=== PATIENT | male | born 1945 | race Caucasian/White ===

== ENCOUNTER 2022-12-11 13:31 | Observation (INO) | payer OTHER, MEDICARE, SELFPAY ==
[2022-12-11] VITALS (8 sets, daily range): BP systolic 114–149; BP diastolic 62–79; PULSE 66–88; RESP 12–20; TEMP 36.3–37.6; O2SAT 94–98; BMI 27.4; BMI 27.1
--- NOTE | ~2022-12-11 | CT_ITS ---
EXAMINATION: CT HEAD WITHOUT CONTRAST CLINICAL INFORMATION: Altered mental status COMPARISON: None available. TECHNIQUE: Contiguous axial imaging was performed from the skull base to vertex without intravenous administration of contrast. This CT examination was performed using dose optimization techniques as appropriate, variously including the following: *Automated exposure control *Adjustment of mA and/or kV according to patient size (this includes techniques or standardized protocols for targeted exams where dose is matched to indication/reason for exam; i.e. extremities or head) *Use of iterative reconstruction technique DLP: 661 mGy-cm FINDINGS: There is no evidence of an extra-axial collection. There is no evidence of intra-axial or extra-axial hemorrhage. The ventricles and extra-axial CSF spaces are appropriate. Oliver-white matter differentiation is normal. No mass, mass effect or infarct. Review at bone windows is normal. CT/CT head/brain wo IV con IMPRESSION: Unremarkable exam.
--- NOTE | 2022-12-11 13:39 | ED.AMS ---
HPI - Altered Mental Status General Chief Complaint: Neuro Symptoms/Deficit Stated Complaint: stroke alert, AMS,Weakness Time Seen by Provider: 12/11/22 13:39 Source: EMS Mode of arrival: EMS Limitations: altered mental status History of Present Illness HPI narrative: patient moving wood in the heat, dressed in jeans and full shirt became very weak, diaphoretic and then had an episode of LOC with the , EMS states waxing and waning confusion. MD complaint: altered mental status, confusion and decreased responsiveness Onset (ago): minute(s) Timing confirmed by: spouse and other (EMS) Severity: severe Related Data Allergies Allergy/AdvReac Type Severity Reaction Status Date / Time No Known Allergies Allergy Verified 12/11/22 13:39 Review of Systems Review of Systems: Yes Unobtainable due to mental status [facility] Social History Social History Alcohol intake: never Smoked in Last 30 Days: No Use of substances other than those prescribed or required for medical reasons: No Advance Directives: No Advance Directives Information Provided: Yes Physical Exam ED Vital Signs: Vital Signs - 24 hr 12/11/22 13:57 12/11/22 16:17 Temperature 97.8 F 98.1 F Pulse Rate 66 79 Respiratory Rate 16 12 Blood Pressure 123/66 122/65 Pulse Oximetry 97 98 Oxygen Delivery Method Room Air Room Air BMI result Body Mass Index 27.4 Const Other: diaphoretic altered, confused looking ill Nutritional Appearance: average body habitus Orientation/consciousness: oriented to person Limitations: altered mental status HENMT Head: Yes normal to inspection Ears: external ears normal General nose exam: Normal external nose present Mouth: Normal oral and palatal mucosa present and oropharynx normal Throat: Yes posterior oropharynx normal Eyes General: appearance normal, both eyes and all related structures Neck Neck: Yes normal visual inspection Chest Chest palpation & inspection: normal inspection of the chest Resp Auscultation: clear to auscultation bilaterally Cardio Jugular venous distension: no JVD Rate: regular rate Rhythm: regular rhythm Heart sounds: S1 normal heart sound present and S2 normal heart sound present GI Inspection: Yes normal to inspection Palpation (GI): Soft to palpation, nontender and No hepatosplenomegaly present Auscultation: normal bowel sounds General: Yes no CVA tenderness Back/Spine/Pelvis Back: no CVA tenderness Skin General skin exam: no rashes or lesions noted Neuro General: oriented to person Cranial nerves: Yes CN's II-XII intact bilaterally Motor exam (neuro): 5/5 motor strength present throughout Extrem General: Yes normal to inspection Psych Other: confused Course Reevaluation(s) Reevaluation #1: patient now improved but with LOC and severe confusion will admit for likely heat stroke Time: 16:24 Reevaluation #2: I spent 40 minutes of critical care, with interventions, assessments, speaking to patient, consultants, and family. Time: 16:30 Medications Administered Discontinued Medications Generic Name Dose Route Start Last Admin Trade Name Freq PRN Reason Stop Dose Admin Sodium Chloride 1,000 mls @ 999 mls/hr 12/11/22 13:45 12/11/22 15:51 Ns IVCONT 12/11/22 15:45 999 mls/hr .Q1H1M CARLOS Administration Medical Decision Making Differential Diagnosis Differential Diagnoses: The differential diagnosis associated with the presentation includes (stroke, cerebral bleed, myocardial infarction, hypoglycemia, hyponatremia, heat stroke) Admission/Observation Consideration of admission/observation: Escalation of care including admission/observation considered (upon arrival patient considered for admission) Consult Healthcare Provider Management of the patient was discussed with: Hospitalist Lab Data 12/11/22 14:05 12/11/22 14:05 Labs: Lab Results 12/11/22 12/11/22 12/11/22 Range/Units 13:57 14:05 14:05 WBC 7.9 (4.8-10.8) X10*3/uL RBC 4.55 L (4.60-5.80) X10*6/uL Hgb 14.5 (14.0-18.0) g/dl Hct 42.0 (42.0-52.0) % MCV 92.3 (80.0-98.0) fL MCH 31.9 (27.0-33.0) pg MCHC 34.5 (31.0-36.0) g/dl RDW 13.0 (11.0-16.0) % Plt Count 197 (160-400) X10*3/uL MPV 9.4 (9.4-12.4) fL Immature Gran % (Auto) 0.5 H (0.0-0.4) % Neut % (Auto) 76.0 H (45-73) % Lymph % (Auto) 12.1 L (20-40) % [place] % (Auto) 11.0 (2-11) % Eos % (Auto) 0.1 (0-4) % Baso % (Auto) 0.3 (0-2) % Lymph # (Auto) 1.0 L (1.2-4.9) X10*3/uL [place] # (Auto) 0.9 (0.1-1.2) X10*3/uL Eos # (Auto) 0.0 (0.0-0.4) X10*3/uL Baso # (Auto) 0.0 (0.0-0.2) X10*3/uL Abs Immat Gran (auto) 0.04 H (0.00-0.03) X10*3/uL Absolute Neuts (auto) 6.0 (2.0-8.3) x10*3/uL Absolute Nucleated RBC 0.000 (0.0-0.012) X10*3/uL Nucleated RBC % (auto) 0.0 (0.0-0.2) /100WBC Sodium 139 (135-145) mmol/L Potassium 4.6 (3.3-5.1) mmol/L Chloride 105 (96-108) mmol/L Carbon Dioxide 25 (22-29) mmol/L Anion Gap 14 (12-20) BUN 11 (9-16) mg/dL Creatinine 1.29 (0.5-1.4) mg/dL Estim Creat Clear Calc 52.6 Estimated GFR 54 POC Glucose 100 (60-115) mg/dL Random Glucose 114 (60-115) mg/dL Calcium 9.4 (8.4-10.2) mg/dL Total Creatine Kinase 61 (38-174) U/L Troponin I High Sens (<3.5-35.0) ng/L 12/11/22 Range/Units 14:05 WBC (4.8-10.8) X10*3/uL RBC (4.60-5.80) X10*6/uL Hgb (14.0-18.0) g/dl Hct (42.0-52.0) % MCV (80.0-98.0) fL MCH (27.0-33.0) pg MCHC (31.0-36.0) g/dl RDW (11.0-16.0) % Plt Count (160-400) X10*3/uL MPV (9.4-12.4) fL Immature Gran % (Auto) (0.0-0.4) % Neut % (Auto) (45-73) % Lymph % (Auto) (20-40) % [place] % (Auto) (2-11) % Eos % (Auto) (0-4) % Baso % (Auto) (0-2) % Lymph # (Auto) (1.2-4.9) X10*3/uL [place] # (Auto) (0.1-1.2) X10*3/uL Eos # (Auto) (0.0-0.4) X10*3/uL Baso # (Auto) (0.0-0.2) X10*3/uL Abs Immat Gran (auto) (0.00-0.03) X10*3/uL Absolute Neuts (auto) (2.0-8.3) x10*3/uL Absolute Nucleated RBC (0.0-0.012) X10*3/uL Nucleated RBC % (auto) (0.0-0.2) /100WBC Sodium (135-145) mmol/L Potassium (3.3-5.1) mmol/L Chloride (96-108) mmol/L Carbon Dioxide (22-29) mmol/L Anion Gap (12-20) BUN (9-16) mg/dL Creatinine (0.5-1.4) mg/dL Estim Creat Clear Calc Estimated GFR POC Glucose (60-115) mg/dL Random Glucose (60-115) mg/dL Calcium (8.4-10.2) mg/dL Total Creatine Kinase (38-174) U/L Troponin I High Sens < 2.7 (<3.5-35.0) ng/L Independent Interpretation I performed an independent interpretation of an: EKG (sinus [address] or twave changes) and CT Scan (no bleed or mass seen) Independent Historian Clinical information obtained from an independent historian. History obtained from or confirmed by: Spouse and EMS Discharge Plan Discharge Clinical Impression: Syncope, Acute alteration in mental status, Heat stroke Patient Disposition: Admitted As Inpatient
--- NOTE | 2022-12-11 13:40 | ECG_ITS ---
Test Reason : AMS Blood Pressure : / mmHG Vent. Rate : 069 BPM Atrial Rate : 069 BPM P-R Int : 204 ms QRS Dur : 086 ms QT Int : 394 ms P-R-T Axes : 067 030 048 degrees QTc Int : 422 ms Normal sinus rhythm Normal ECG No previous ECGs available Referred By: Maximino Rolon Electronically Signed By:JORGE MOTT
[2022-12-11 14:05] LABS: Glucose, Whole Blood 100 mg/dL (60-115)
[2022-12-11 14:08] LABS: MANUAL DIFF FLAG NO
[2022-12-11 14:17] LABS: Basophils Percent Auto 0.3 % (0-2); Eosinophils Percent Auto 0.1 % (0-4); Hemoglobin 14.5 g/dl (14.0-18.0); Imm Gran Abs Auto 0.04 X10*3/uL (0.00-0.03); Imm Gran Pct Auto 0.5 % (0.0-0.4); Lymphocytes Percent Auto 12.1 % (20-40); Mean Corpuscular HGB Conc 34.5 g/dl (31.0-36.0); Mean Corpuscular Hemoglobin 31.9 pg (27.0-33.0); Mean Corpuscular Volume 92.3 fL (80.0-98.0); Mean Platelet Volume 9.4 fL (9.4-12.4); Monocytes Absolute Auto 0.9 X10*3/uL (0.1-1.2); Platelet Count 197 X10*3/uL (160-400); Red Blood Count 4.55 X10*6/uL (4.60-5.80); White Blood Count 7.9 X10*3/uL (4.8-10.8)
[2022-12-11 14:28] LABS: Anion Gap 14 (12-20); Blood Urea Nitrogen 11 mg/dL (9-16); Calcium 9.4 mg/dL (8.4-10.2); Carbon Dioxide 25 mmol/L (22-29); Chloride 105 mmol/L (96-108); Creatinine Clr Calc Pharmacy 52.6; Estimated Glomerular Filt Rate 54; Glucose Random 114 mg/dL (60-115); Potassium 4.6 mmol/L (3.3-5.1); Sodium 139 mmol/L (135-145)
--- NOTE | 2022-12-11 14:28 | PC.NURSE ---
pt is a/o x 2, pt could not remember the year. pt speaks in full sentences. no neuro deficits at this time. passed swallow radha jarquin. pt/ aware of plan of care.
[2022-12-11] MEDS: 0.9 % Sodium Chloride 1,000 ML 999 ML IVCONT ×2 (14:30→15:51)
[2022-12-11 14:43] LABS: Troponin-I High Sensitivity < 2.7 ng/L (<3.5-35.0)
--- NOTE | 2022-12-11 15:54 | PC.NURSE ---
Patient alert and answering all questions appropriately, speech is clear at this time. No s/s of distress noted, patient breathing without issues. Able to move all extremities evenly and without issue.
[2022-12-11 16:37] LABS: Appearance Urine Clear; Color Urine Yellow; Glucose Urine UA Negative (Negative); Leukocyte Esterase Urine Negative (Negative); Nitrite Urine Negative (Negative); PH 7.5 (5.0-9.0); Specific Gravity - Urine 1.015 (1.005-1.025); Urine Blood Negative (Negative); Urine Ketones 15 mg/dL (Negative); Urine Protein Negative (Neg-Trace)
[2022-12-11 16:51] LABS: Troponin-I High Sensitivity 25.1 ng/L (<3.5-35.0)
[2022-12-11 16:53] LABS: Amphetamine Screen Urine Not Detected (Not Detect); Barbiturates, Urine Not Detected (Not Detect); Benzodiazepines Screen Urine Not Detected (Not Detect); Cannabinoid Screen Urine Not Detected (Not Detect); Cocaine Screen Urine Not Detected (Not Detect); Fentanyl, urine Not Detected (Not Detect); Opiate Screen Urine Not Detected (Not Detect); Phencyclidine Screen Urine Not Detected (Not Detect)
--- NOTE | 2022-12-11 16:55 | PHA.MEDREC ---
Pharmacy Consult ? Medication Reconciliation Pharmacy has completed the medication reconciliation.
--- NOTE | 2022-12-11 17:37 | MHC.EDTECH ---
Patient requesting food/drink, and per Zuly ADKINS, patient okay to eat. Given turkey sandwich, pudding and gingerale.
--- NOTE | 2022-12-11 18:24 | P.HPHOSP_ITS ---
History of Present Illness Date of Service: 12/11/22 Chief Complaint: syncope 77-year-old male with essentially no significant past medical history was working in his yd today dressed heavily. Patient states he felt hot and sweaty; sat down and attempted to take a drink. States he felt like his vision was becoming poe. came out with a cold cloth and stated that he was extremely pale admitted eyes rolled back in his head. She did not recount any overt seizure activity however said that after things past he was confused for a short period of time prompting her to call an ambulance. He states this not 1st time he has had this kind of episode. In the ER hemodynamically stable symptom free Review of Systems Review of Systems: Denies chest pain Denies shortness of breath Denies nausea vomiting diarrhea Denies fever chills PMFSH Social History Alcohol intake: never Smoked in Last 30 Days: No Use of substances other than those prescribed or required for medical reasons: No Advance Directives: No Advance Directives Information Provided: Yes Meds Allergies Allergy/AdvReac Type Severity Reaction Status Date / Time No Known Allergies Allergy Verified 12/11/22 13:39 Home Medications Medication Instructions Recorded Confirmed Last Taken Type atorvastatin 40 mg tablet 40 mg PO BEDTIME 12/11/22 12/11/22 Unknown History Physical Exam Vital Signs and Narrative: Vital Signs: Last Vital Signs Temp 98.0 F 12/11/22 17:36 Pulse 79 12/11/22 17:36 Resp 12 12/11/22 17:36 BP 130/79 12/11/22 17:36 Pulse Ox 98 12/11/22 17:36 O2 Del Method Room Air 12/11/22 17:36 BMI result Body Mass Index 27.4 Const: Other: Awake alert oriented x3 resting quietly in stretcher Resp: Other: Clear to auscultation bilaterally no rales rhonchi or wheezes Cardio: Other: No S4; positive S1-S2; no S3 murmurs rubs or gallops GI: Other: Soft nontender nondistended normoactive bowel sounds Neuro: Other: Cranial nerves 2-12 grossly intact as tested. Motor is 5/5 all extremities. Sensation is intact. Cognition appropriate Extrem: Other: No edema bilaterally Results Labs 12/11/22 14:05 12/11/22 14:05 Labs: Laboratory Results - last 24 hr 12/11/22 12/11/22 12/11/22 13:57 14:05 14:05 MCV 92.3 MCH 31.9 MCHC 34.5 RDW 13.0 Plt Count 197 MPV 9.4 Immature Gran % (Auto) 0.5 H Neut % (Auto) 76.0 H Lymph % (Auto) 12.1 L [place] % (Auto) 11.0 Eos % (Auto) 0.1 Baso % (Auto) 0.3 Lymph # (Auto) 1.0 L [place] # (Auto) 0.9 Eos # (Auto) 0.0 Baso # (Auto) 0.0 Abs Immat Gran (auto) 0.04 H Absolute Neuts (auto) 6.0 Absolute Nucleated RBC 0.000 Nucleated RBC % (auto) 0.0 Anion Gap 14 Estim Creat Clear Calc 52.6 Estimated GFR 54 POC Glucose 100 Random Glucose 114 Calcium 9.4 Total Creatine Kinase 61 Urine Color Urine Appearance Urine pH Ur Specific [place] Urine Protein Urine Glucose (UA) Urine Ketones Urine Blood Urine Nitrite Ur Leukocyte Esterase Urine Opiates Screen Urine Fentanyl Screen Ur Barbiturates Screen Ur Phencyclidine Scrn Ur Amphetamines Screen U Benzodiazepines Scrn Urine Cocaine Screen U Marijuana (THC) Screen 12/11/22 12/11/22 16:29 16:29 MCV MCH MCHC RDW Plt Count MPV Immature Gran % (Auto) Neut % (Auto) Lymph % (Auto) [place] % (Auto) Eos % (Auto) Baso % (Auto) Lymph # (Auto) [place] # (Auto) Eos # (Auto) Baso # (Auto) Abs Immat Gran (auto) Absolute Neuts (auto) Absolute Nucleated RBC Nucleated RBC % (auto) Anion Gap Estim Creat Clear Calc Estimated GFR POC Glucose Random Glucose Calcium Total Creatine Kinase Urine Color Yellow Urine Appearance Clear Urine pH 7.5 Ur Specific [place] 1.015 Urine Protein Negative Urine Glucose (UA) Negative Urine Ketones 15 Urine Blood Negative Urine Nitrite Negative Ur Leukocyte Esterase Negative Urine Opiates Screen Not Detected Urine Fentanyl Screen Not Detected Ur Barbiturates Screen Not Detected Ur Phencyclidine Scrn Not Detected Ur Amphetamines Screen Not Detected U Benzodiazepines Scrn Not Detected Urine Cocaine Screen Not Detected U Marijuana (THC) Screen Not Detected Imaging Radiologist's Impressions: Impressions Head CT 12/11/22 13:56 IMPRESSION: Unremarkable exam. Assessment and Plan (1) Syncope: Status: Acute (2) Acute alteration in mental status: Status: Acute (3) Hyperlipidemia: Status: Acute Plan 77-year-old male with essentially no significant past medical history presents after what the describes as a syncopal episode in the heat. Upon arrival to the emergency room patient asymptomatic and hemodynamically stable. said this has happened before and workup has been unremarkable 1. Syncope/altered mental status -no witnessed seizure activity -admit to telemetry observed times 24 hours -cannot have MRI secondary to metal implant right forearm -likely vasovagal episode; will discuss further workup with Neurology in a.m. 2. Hyperlipidemia -continue statin Full code Lovenox Patient will require least 1 midnight going forward to evaluate causes for syncope. This cannot be achieved a lesser acute setting Time Spent With Patient Time: Total time managing care of this patient today ____ minutes. Quality Stroke Does the patient have a stroke diagnosis?: No VTE Prior VTE?: No VTE Risk Level:: Medical - moderate - high VTE Device Contraindication: Treatment Not Indicated VTE Drug Contraindication: N/A - Med Ordered
[2022-12-11] MEDS: Acetaminophen 325 MG TABLET 650 MG PO (19:47)
[2022-12-11] MEDS: Enoxaparin Sodium 40 MG/0.4 ML SYRINGE SUBCUT (19:48)
[2022-12-11] MEDS: Atorvastatin Calcium 40 MG TABLET PO (20:59)
[2022-12-12 03:08] VITALS: BP 129/68; PULSE 95; RESP 20; TEMP 36.9; O2SAT 95
[2022-12-12] MEDS: 0.9 % Sodium Chloride Flush 3 ML SYRINGE IVFLUSH ×2 (03:24→07:42)
[2022-12-12 06:53] LABS: MANUAL DIFF FLAG NO
[2022-12-12 07:07] LABS: Basophils Percent Auto 0.3 % (0-2); Eosinophils Percent Auto 0.5 % (0-4); Hematocrit 41.1 % (42.0-52.0); Hemoglobin 14.2 g/dl (14.0-18.0); Imm Gran Abs Auto 0.02 X10*3/uL (0.00-0.03); Imm Gran Pct Auto 0.3 % (0.0-0.4); Lymphocytes Percent Auto 16.2 % (20-40); Mean Corpuscular HGB Conc 34.5 g/dl (31.0-36.0); Mean Corpuscular Hemoglobin 32.3 pg (27.0-33.0); Mean Corpuscular Volume 93.4 fL (80.0-98.0); Mean Platelet Volume 10.1 fL (9.4-12.4); Monocytes Absolute Auto 0.8 X10*3/uL (0.1-1.2); Monocytes Percent Auto 12.4 % (2-11); Neutrophils Absolute Auto 4.3 x10*3/uL (2.0-8.3); Neutrophils Percent Auto 70.3 % (45-73); Platelet Count 187 X10*3/uL (160-400); Red Cell Distribution Width 13.3 % (11.0-16.0); White Blood Count 6.1 X10*3/uL (4.8-10.8)
[2022-12-12 07:20] VITALS: BP 140/70; PULSE 83; RESP 18; TEMP 36.6; O2SAT 96
[2022-12-12 07:29] LABS: Alanine Aminotransferase 24 U/L (0-40); Albumin Level 3.6 g/dL (3.5-5.0); Alkaline Phosphatase 49 U/L (39-117); Anion Gap 12 (12-20); Aspartate Amino Transferase 20 U/L (5-37); Bilirubin Total 0.8 mg/dL (0.0-1.0); Blood Urea Nitrogen 10 mg/dL (9-16); Calcium 8.8 mg/dL (8.4-10.2); Carbon Dioxide 25 mmol/L (22-29); Chloride 106 mmol/L (96-108); Estimated Glomerular Filt Rate > 60; Glucose Random 102 mg/dL (60-115); Potassium 4.3 mmol/L (3.3-5.1); Sodium 139 mmol/L (135-145); Total Protein 6.4 g/dL (6.5-8.0)
[2022-12-12 11:23] VITALS: BP 134/70; PULSE 92; RESP 20; TEMP 37.6; O2SAT 95
--- NOTE | 2022-12-12 11:47 | P.DS_ITS ---
DS: Providers Provider Date of Service: 12/12/22 Date of admission: 12/11/22 18:21 Date of discharge: 12/12/22 Primary care physician: Vahid Johnson DS: Diagnosis Discharge Diagnosis (1) Syncope: Status: Acute (2) Acute alteration in mental status: Status: Acute (3) Hyperlipidemia: Status: Acute DS: Summary Hospital Course Hospital Course: 77-year-old male with essentially no significant past medical history was working in his yd today dressed heavily.? Patient states he felt hot and sweaty; sat down and attempted to take a drink.? States he felt like his vision was becoming poe.? came out with a cold cloth and stated that he was extremely pale admitted eyes rolled back in his head.? She did not recount any overt seizure activity however said that after things past he was confused for a short period of time prompting her to call an ambulance.? He states this not 1st time he has had this kind of episode.? In the ER hemodynamically stable symptom free Hospital course Admitted to awake overnight monitor failed to demonstrate any pathological arrhythmias. Patient feels back to baseline. At this point in time he is anxious to be discharged and believe he is medically acceptable for the same. He will follow up with PCP at next available Time Spent with Patient Time attestation: Total time managing care of this patient today ____ minutes. Discharge coordination time: Greater than 30 minutes Quality: Safe Use of Opioids Does Pt have an Active Cancer Diagnosis on the Problem List?: No Quality: Stroke Does the patient have a stroke diagnosis?: No Physical Exam Vital Signs: Vital Signs: Last Vital Signs Temp 99.6 F 12/12/22 11:23 Pulse 92 12/12/22 11:23 Resp 20 12/12/22 11:23 BP 134/70 12/12/22 11:23 Pulse Ox 95 12/12/22 11:23 O2 Del Method Room Air 12/12/22 11:23 BMI result Body Mass Index 27.1 Const: Other: Awake alert oriented x3 resting quietly in stretcher Resp: Other: Clear to auscultation bilaterally no rales rhonchi or wheezes Cardio: Other: No S4; positive S1-S2; no S3 murmurs rubs or gallops GI: Other: Soft nontender nondistended normoactive bowel sounds Neuro: Other: Cranial nerves 2-12 grossly intact as tested. Motor is 5/5 all extremities. Sensation is intact. Cognition appropriate Extrem: Other: No edema bilaterally DS: Data Data Completed and Pending Labs on day of discharge: Laboratory Results - last 24 hr 12/11/22 12/11/22 12/11/22 13:57 14:05 14:05 WBC 7.9 RBC 4.55 L Hgb 14.5 Hct 42.0 MCV 92.3 MCH 31.9 MCHC 34.5 RDW 13.0 Plt Count 197 MPV 9.4 Immature Gran % (Auto) 0.5 H Neut % (Auto) 76.0 H Lymph % (Auto) 12.1 L [place] % (Auto) 11.0 Eos % (Auto) 0.1 Baso % (Auto) 0.3 Lymph # (Auto) 1.0 L [place] # (Auto) 0.9 Eos # (Auto) 0.0 Baso # (Auto) 0.0 Abs Immat Gran (auto) 0.04 H Absolute Neuts (auto) 6.0 Absolute Nucleated RBC 0.000 Nucleated RBC % (auto) 0.0 Sodium 139 Potassium 4.6 Chloride 105 Carbon Dioxide 25 Anion Gap 14 BUN 11 Creatinine 1.29 Estim Creat Clear Calc 52.6 Estimated GFR 54 POC Glucose 100 Random Glucose 114 Calcium 9.4 Total Bilirubin AST ALT Alkaline Phosphatase Total Creatine Kinase 61 Troponin I High Sens Total Protein Albumin Urine Color Urine Appearance Urine pH Ur Specific [place] Urine Protein Urine Glucose (UA) Urine Ketones Urine Blood Urine Nitrite Ur Leukocyte Esterase Urine Opiates Screen Urine Fentanyl Screen Ur Barbiturates Screen Ur Phencyclidine Scrn Ur Amphetamines Screen U Benzodiazepines Scrn Urine Cocaine Screen U Marijuana (THC) Screen 12/11/22 12/11/22 12/11/22 14:05 16:23 16:29 WBC RBC Hgb Hct MCV MCH MCHC RDW Plt Count MPV Immature Gran % (Auto) Neut % (Auto) Lymph % (Auto) [place] % (Auto) Eos % (Auto) Baso % (Auto) Lymph # (Auto) [place] # (Auto) Eos # (Auto) Baso # (Auto) Abs Immat Gran (auto) Absolute Neuts (auto) Absolute Nucleated RBC Nucleated RBC % (auto) Sodium Potassium Chloride Carbon Dioxide Anion Gap BUN Creatinine Estim Creat Clear Calc Estimated GFR POC Glucose Random Glucose Calcium Total Bilirubin AST ALT Alkaline Phosphatase Total Creatine Kinase Troponin I High Sens < 2.7 25.1 D Total Protein Albumin Urine Color Yellow Urine Appearance Clear Urine pH 7.5 Ur Specific [place] 1.015 Urine Protein Negative Urine Glucose (UA) Negative Urine Ketones 15 Urine Blood Negative Urine Nitrite Negative Ur Leukocyte Esterase Negative Urine Opiates Screen Urine Fentanyl Screen Ur Barbiturates Screen Ur Phencyclidine Scrn Ur Amphetamines Screen U Benzodiazepines Scrn Urine Cocaine Screen U Marijuana (THC) Screen 12/11/22 12/12/22 12/12/22 16:29 06:42 06:42 WBC 6.1 RBC 4.40 L Hgb 14.2 Hct 41.1 L MCV 93.4 MCH 32.3 MCHC 34.5 RDW 13.3 Plt Count 187 MPV 10.1 Immature Gran % (Auto) 0.3 Neut % (Auto) 70.3 Lymph % (Auto) 16.2 L [place] % (Auto) 12.4 H Eos % (Auto) 0.5 Baso % (Auto) 0.3 Lymph # (Auto) 1.0 L [place] # (Auto) 0.8 Eos # (Auto) 0.0 Baso # (Auto) 0.0 Abs Immat Gran (auto) 0.02 Absolute Neuts (auto) 4.3 Absolute Nucleated RBC 0.000 Nucleated RBC % (auto) 0.0 Sodium 139 Potassium 4.3 Chloride 106 Carbon Dioxide 25 Anion Gap 12 BUN 10 Creatinine 0.86 Estim Creat Clear Calc 79.0 Estimated GFR > 60 POC Glucose Random Glucose 102 Calcium 8.8 D Total Bilirubin 0.8 AST 20 ALT 24 Alkaline Phosphatase 49 Total Creatine Kinase Troponin I High Sens Total Protein 6.4 L Albumin 3.6 Urine Color Urine Appearance Urine pH Ur Specific [place] Urine Protein Urine Glucose (UA) Urine Ketones Urine Blood Urine Nitrite Ur Leukocyte Esterase Urine Opiates Screen Not Detected Urine Fentanyl Screen Not Detected Ur Barbiturates Screen Not Detected Ur Phencyclidine Scrn Not Detected Ur Amphetamines Screen Not Detected U Benzodiazepines Scrn Not Detected Urine Cocaine Screen Not Detected U Marijuana (THC) Screen Not Detected Discharge Plan Discharge Anticipated Discharge Date/Time: 12/12/22 11:43 Patient Disposition: Home, Self-Care Discharge Diagnosis: Heat stroke Referrals: Vahid Johnson [Primary Care Provider] - 1 Week Discharge Medications: Continued atorvastatin 40 mg Tablet 40 mg PO BEDTIME Discharge Orders: Discharge Order (Routine); Ordered 12/12/22 Ordered By: Alvaro Armenta Diet: Advance to usual diet Activity on Discharge: As tolerated Stand Alone Forms: Patient Portal Discharge page Care Plan Goals: Resume atorvastatin an outpatient dosing Health Concerns: Caution when working outside; drink plenty of fluids Plan of Treatment: Follow-up with her PCP next available Assessment: See discharge summary
--- NOTE | 2022-12-12 12:24 | MHC.CM.PN ---
CM MET WITH PT AND BEDSIDE PT LIVES AT HOME WITH HIS AND IS INDEPENDENT WITH CARE PT HAS NO DME AND NO SERVICES HE IS A [facility] HCP COMPLETED TODAY NAMING HIS , LUAN, AND SON, DELFINO, HIS AGENTS PCP: ROSIE [place] OBSERVATION NOTICE DELIVERED DCP: HOME TODAY WITH NO SERVICES SON TO TRANSPORT
== END 2022-12-12 13:03 | disposition home or self-care (01) ==
LOC: HO.ED 16:11 → HO.EDOVER 18:49 → HO.IMC 19:37
PROVIDERS: Admitting Provider Hospitalist; Emergency Provider Emergency Medicine; PCP Internal Medicine; Visit Provider Hospitalist
DX: T67.01XA Heatstroke and sunstroke, initial encounter (principal); X58.XXXA Exposure to other specified factors, initial encounter; R55 Syncope and collapse; Y93.9 Activity, unspecified; Y92.89 Other specified places as the place of occurrence of the external cause; Y99.9 Unspecified external cause status; E78.5 Hyperlipidemia, unspecified; R41.82 Altered mental status, unspecified
CPT/HCPCS: 36415; 70450; 80048; 80053; 80307; 81003; 82550; 82947; 84484; 85025; 93005; 96360; 96361; 96372; 99222; 99285; J1650

== ENCOUNTER → 2022-12-11 14:25 | Outpatient (BNV) | payer OTHER, SELFPAY | PROVIDERS: Emergency Provider Emergency Medicine; PCP Internal Medicine; Visit Provider Hospitalist | DX: R55 Syncope and collapse (principal); R41.82 Altered mental status, unspecified; E78.5 Hyperlipidemia, unspecified | CPT/HCPCS: 99223; 99239 ==